=== PATIENT | male | born 1985 | race Caucasian/White ===

== ENCOUNTER 2024-06-04 12:52 | Emergency (ER) | payer MEDICAID ==
[~2024-06-04] VITALS: Ht 172.7 cm; Wt 74.8 kg
[2024-06-04 13:41] VITALS: BP 135/78; TEMP 98; O2SAT 99
== END 2024-06-04 13:41 | disposition home or self-care (01) ==
LOC: ER 13:09
DX: R07.89 Other chest pain (principal); V89.2XXA Person injured in unspecified motor-vehicle accident, traffic, initial encounter; Y92.410 Unspecified street and highway as the place of occurrence of the external cause; Y93.89 Activity, other specified; Y99.8 Other external cause status